=== PATIENT | male | born 1940 | race American Indian/Alaskan Native ===

== ENCOUNTER 2020-05-17 20:04 | Emergency (ER) | payer MEDICARE ==
[2020-05-17 22:04] LABS: Basophils # (Auto) 0.1 K/mm3 (0.0-0.1); Eosinophils # (Auto) 0.5 K/mm3 (0.0-0.4); Eosinophils % (Auto) 4.9 % (0.0-4.3); Hematocrit 42.1 % (35.5-45.6); Hemoglobin 14.2 gm/dl (11.8-15.2); Lymphocytes # (Auto) 2.4 K/mm3 (1.2-5.4); Lymphocytes % (Auto) 23.1 % (13.4-35.0); Mean Corpuscular HGB Conc 34 % (32-34); Mean Corpuscular Volume 90 fl (84-94); Monocytes # (Auto) 0.9 K/mm3 (0.0-0.8); Monocytes % (Auto) 8.9 % (0.0-7.3); Platelet Count 254 K/mm3 (140-440); Red Blood Count 4.68 M/mm3 (3.65-5.03); Red Cell Distribution Width 13.4 % (13.2-15.2)
[2020-05-17 22:22] LABS: Alanine Aminotransferase 19 units/L (7-56); Albumin 4.1 g/dL (3.9-5); BUN/Creatinine Ratio 24; Blood Urea Nitrogen 22 mg/dL (9-20); Calcium 8.6 mg/dL (8.4-10.2); Hemolysis Index 9
--- NOTE | 2020-05-17 22:25 | Emergency Department Report ---
ED Abdominal Pain HPI - General Chief Complaint: Urogenital-Male Stated Complaint: GROIN PAINS Time Seen by Provider: 05/17/20 20:48 Source: patient Mode of arrival: Ambulatory Limitations: No Limitations - History of Present Illness Initial Comments: 79-year-old male with a reported history of hernia for the last 2 years presents emerged department complaining of pain to the left inguinal area and a tender mass off and on associated with cough which is been progressive worsening over the last 2 days. Reports no nausea, no vomiting, no fever, chills, sweats, no testicular pain, no hematemesis, no hematochezia, no hematuria, no dysuria. States pain is worse with certain positions and palpation and does not radiate up the left side of the abdomen from time to time. MD Complaint: abdominal pain Location: LLQ Radiation: LUQ, LLQ Severity: mild, moderate Quality: aching, sharp Consistency: intermittent Improves With: nothing Associated Symptoms: denies: nausea, vomiting, diarrhea, constipation, hematochezia, hematuria, anorexia, syncope - Related Data Previous Rx's Medication Instructions Recorded Last Taken Type Acetaminophen/Codeine [Tylenol 1 tab PO Q12H PRN #5 tab 05/18/20 Unknown Rx /Codeine # 3 tab] Allergies Allergy/AdvReac Type Severity Reaction Status Date / Time No Known Allergies Allergy Unverified 05/17/20 21:05 ED Review of Systems ROS: Stated complaint: GROIN PAINS Other details as noted in HPI Comment: All other systems reviewed and negative ED Past Medical Hx - Past Medical History Previous Medical History?: No - Surgical History Past Surgical History?: Yes Additional Surgical History: R hernia surgery, "more than 10 yrs ago" - Medications Home Medications: Home Medications Medication Instructions Recorded Confirmed Last Taken Type Acetaminophen/Codeine [Tylenol 1 tab PO Q12H PRN #5 tab 05/18/20 Unknown Rx /Codeine # 3 tab] ED Physical Exam - General Limitations: No Limitations General appearance: alert, in no apparent distress - Head Head exam: Present: atraumatic, normocephalic - Eye Eye exam: Present: normal appearance - ENT ENT exam: Present: mucous membranes moist - Neck Neck exam: Present: normal inspection - Respiratory Respiratory exam: Present: normal lung sounds bilaterally. Absent: respiratory distress - Cardiovascular Cardiovascular Exam: Present: regular rate, normal rhythm. Absent: systolic murmur, diastolic murmur, rubs, gallop - GI/Abdominal GI/Abdominal exam: Present: soft, normal bowel sounds - Rectal Rectal exam: Present: deferred - Extremities Exam Extremities exam: Present: normal inspection - Back Exam Back exam: Present: normal inspection - Neurological Exam Neurological exam: Present: alert, oriented X3 - Psychiatric Psychiatric exam: Present: normal affect, normal mood - Skin Skin exam: Present: warm, dry, intact, normal color. Absent: rash ED Course Vital Signs 05/17/20 20:29 Temperature 97.9 F Pulse Rate 70 Respiratory 18 Rate Blood Pressure 137/67 O2 Sat by Pulse 93 Oximetry ED Medical Decision Making - Lab Data Result diagrams: 05/17/20 21:20 05/17/20 21:20 Lab Results 05/17/20 05/17/20 05/17/20 Range/Units 21:20 21:20 Unknown WBC 10.3 (4.5-11.0) K/mm3 RBC 4.68 (3.65-5.03) M/mm3 Hgb 14.2 (11.8-15.2) gm/dl Hct 42.1 (35.5-45.6) % MCV 90 (84-94) fl MCH 30 (28-32) pg MCHC 34 (32-34) % RDW 13.4 (13.2-15.2) % Plt Count 254 (140-440) K/mm3 Lymph % (Auto) 23.1 (13.4-35.0) % [place] % (Auto) 8.9 H (0.0-7.3) % Eos % (Auto) 4.9 H (0.0-4.3) % Baso % (Auto) 1.0 (0.0-1.8) % Lymph # (Auto) 2.4 (1.2-5.4) K/mm3 [place] # (Auto) 0.9 H (0.0-0.8) K/mm3 Eos # (Auto) 0.5 H (0.0-0.4) K/mm3 Baso # (Auto) 0.1 (0.0-0.1) K/mm3 Seg Neutrophils % 62.1 (40.0-70.0) % Seg Neutrophils # 6.4 (1.8-7.7) K/mm3 Sodium 139 (137-145) mmol/L Potassium 4.0 (3.6-5.0) mmol/L Chloride 104.4 (98-107) mmol/L Carbon Dioxide 22 (22-30) mmol/L Anion Gap 17 mmol/L BUN 22 H (9-20) mg/dL Creatinine 0.9 (0.8-1.3) mg/dL Estimated GFR > 60 ml/min BUN/Creatinine Ratio 24 % Glucose 88 (75-100) mg/dL Calcium 8.6 (8.4-10.2) mg/dL Total Bilirubin 0.30 (0.1-1.2) mg/dL AST 20 (5-40) units/L ALT 19 (7-56) units/L Alkaline Phosphatase 107 (35-129) units/L Total Protein 6.5 (6.3-8.2) g/dL Albumin 4.1 (3.9-5) g/dL Albumin/Globulin Ratio 1.7 % Urine Color Yellow (Yellow) Urine Turbidity Clear (Clear) Urine pH 5.0 (5.0-7.0) Ur Specific [place] 1.017 (1.003-1.030) Urine Protein <15 mg/dl (Negative) mg/dL Urine Glucose (UA) Neg (Negative) mg/dL Urine Ketones Neg (Negative) mg/dL Urine Blood Neg (Negative) Urine Nitrite Neg (Negative) Urine Bilirubin Neg (Negative) Urine Urobilinogen < 2.0 (<2.0) mg/dL Ur Leukocyte Esterase Neg (Negative) Urine WBC (Auto) < 1.0 (0.0-6.0) /HPF Urine RBC (Auto) < 1.0 (0.0-6.0) /HPF Urine Mucus Few /HPF - Radiology Data Radiology results: report reviewed Referring Physician:SARA LEWISPatient Name:WESTON CARLSONEPatient ID:[id number] of :[id number]:MaleAccession:[id number] Date:[id number] Status:Finalized Findings [facility] [address] [place] [address] Cat Scan Report Signed Patient: WESTON ENGLE MR#: [id number] : 1940 Acct:[id number] Age/Sex: 79 / M ADM Date: 05/17/20 Loc: ED Attending Dr: Ordering Physician: FRANCA LEGER Date of Service: 05/17/20 Procedure(s): CT abdomen pelvis w con Accession Number(s): [id number] cc: FRANCA LEGER CT OF THE ABDOMEN AND PELVIS WITH INTRAVENOUS CONTRAST INDICATION / CLINICAL INFORMATION: Lower abdominal pain. TECHNIQUE: The patient received 100 cc Omnipaque [address] scans at this location are performed using CT dose reduction for ALARA by means of automated exposure control. COMPARISON: None available. FINDINGS: ABDOMEN: There is patchy low density in the pancreatic head/uncinate process without a discrete mass. There is a focal area of ductal calcification in the pancreatic duct near the neck. An adjacent subcentimeter pancreatic cyst is present at that site. There are diffuse atherosclerotic calcifications involving the abdominal aorta and its branches. There is an infrarenal AAA measuring approximately 3.7 cm transverse. Several small low-density lesions in the liver are likely cysts. The gallbladder, bile ducts, pancreas, adrenal glands, kidneys and bowel demonstrate no significant abnormality. There is an 8 mm noncalcified subpleural nodule in the left lower lobe and there is a 3 mm noncalcified subpleural nodule in the right lower lobe. Mild bibasilar subsegmental atelectasis is present. PELVIS: The prostate gland is mildly enlarged. The distal ureters and urinary bladder are normal. The cecum is located in the upper abdomen near the midline. I do not identify the appendix. There is no evidence of diverticulitis. No abnormal mass or fluid collection is seen. I do not identify a hernia. There is a stent graft in the right common iliac artery. No acute osseous abnormality is present. IMPRESSION: 1. No acute intra-abdominal disease is identified. 2. 3.7 cm infrarenal AAA. 3. Patchy low density in the pancreatic head/uncinate process may just represent focal fatty infiltration rather than a mass. Subcentimeter cyst in the pancreatic neck with associated adjacent pancreatic ductal calcifications. Nonemergent MRI of the pancreas may be he lpful in further evaluation. 4. Incidental pulmonary nodules, the largest of which measures 8 mm in the left lower lobe. A follow-up CT of the chest is recommended in 3-6 months in both low and high risk patients. INCIDENTAL PULMONARY NODULE RECOMMENDATION RECOMMENDATION: Solid Nodule size 6-8 mm -- Multiple - Low Risk Patient: CT at 3-6 months, then consider CT at 18-24 months - High Risk Patient: CT at 3-6 months, then CT at 18-24 month Note These recommendations do not apply to lung cancer screening, patients with immunosuppression, or patients with known primary cancer. Note Newly detected indeterminate nodule in persons 35 years of age or older. Persons under the age of 35 should not receive follow-up unless there is a known primary cancer. Note A Perifissural Nodule is a fissure-attached/subpleural, homogeneous, solid nodule that had smooth margins and an oval, lentiform, or triangular shape. They represent about 20% of nodules detected in lung cancer screening, are invariably benign, and do not require follow-up. Nodules 10 mm or larger (or those with suspicious features) will continue to be managed based on the size criteria. Low Risk Patient -- minimal or absent history of smoking and of other known risk factors. High Risk Patient -- history of smoking or of other known risk factors. Nodule dimensions are average of long and short axes, rounded to the nearest millimeter. Based on 2017 Fleischner Society Guidelines found in Radiology 2017 284:228-243. https://doi.org/10.1148/radiol.4774306903 https://www.ncbi.nlm.nih.gov/pmc/articles/DAS2011921/ Signer Name: Salas Al MD Signed: 05/17/2020 11:23 PM Workstation Name: [id number] Transcribed By: RT Dictated By: Salas Al MD Electronically Authenticated By: Salas Al MD Signed Date/Time: 05/17/202322 DD/ 11 TD/TT: - Medical Decision Making This patient presents with abdominal pain of unclear etiology but may stem from a left inguinal hernia. A CT scan was performed to evaluate for potential causes of the abdominal pain, however, neither the clinical exam nor the CT has identified an emergent etiology for the abdominal pain. Specifically, given the benign exam, the laboratory studies, and unremarkable CT, I have a very low suspicion for appendicitis, ischemic bowel, bowel perforation, or any other life threatening disease. I have discussed with the patient the level of uncertainty with undifferentiated abdominal pain and clearly explained the need to follow-up as noted on the discharge instructions, or return to the Emergency Department immediately if the pain worsens, develops fever, persistent and uncontrollable vomiting, or for any new symptoms or concerns. Critical care attestation.: If time is entered above; I have spent that time in minutes in the direct care of this critically ill patient, excluding procedure time. ED Disposition Clinical Impression: Pulmonary nodule seen on imaging study, Pancreatic cyst, Aneurysm of infrarenal abdominal aorta, Abdominal pain, Inguinal hernia Disposition: TO HOME OR SELFCARE Is pt being admited?: No Does the pt Need Aspirin: No Condition: Stable Instructions: Incidental Abnormal Radiological Finding, Pulmonary Nodule Prescriptions: Acetaminophen/Codeine [Tylenol /Codeine # 3 tab] 1 tab PO Q12H PRN #5 tab PRN Reason: severe pain Referrals: PRIMARY CAREMD [Primary Care Provider] - 3-5 Days ZUNILDA PETERSON MD [Staff Physician] - 3-5 Days
[2020-05-17 22:30] LABS: Bilirubin,Urine NEG (Negative); Blood,Urine NEG (Negative); Color,Urine Yellow (Yellow); Mucus,Urine FEW /HPF; Protein,Urine <15 mg/dL mg/dL (Negative); RBC,Urine < 1.0 /HPF (0.0-6.0); Urobilinogen,Urine < 2.0 mg/dL (<2.0); WBC,Urine < 1.0 /HPF (0.0-6.0)
--- NOTE | 2020-05-17 23:28 | Cat Scan Report ---
CT OF THE ABDOMEN AND PELVIS WITH INTRAVENOUS CONTRAST INDICATION / CLINICAL INFORMATION: Lower abdominal pain. TECHNIQUE: The patient received 100 cc Omnipaque [address] scans at this location are performed using CT dose reduction for ALARA by means of automated exposure control. COMPARISON: None available. FINDINGS: ABDOMEN: There is patchy low density in the pancreatic head/uncinate process without a discrete mass. There is a focal area of ductal calcification in the pancreatic duct near the neck. An adjacent subc entimeter pancreatic cyst is present at that site. There are diffuse atherosclerotic calcifications involving the abdominal aorta and its branches. Ther e is an infrarenal AAA measuring approximately 3.7 cm transverse. Several small low-density lesions i n the liver are likely cysts. The gallbladder, bile ducts, pancreas, adrenal glands, kidneys and robbin l demonstrate no significant abnormality. There is an 8 mm noncalcified subpleural nodule in the left lower lobe and there is a 3 mm noncalcifi ed subpleural nodule in the right lower lobe. Mild bibasilar subsegmental atelectasis is present. PELVIS: The prostate gland is mildly enlarged. The distal ureters and urinary bladder are normal. The cecum is located in the upper abdomen near the midline. I do not identify the appendix. There is no evidence of diverticulitis. No abnormal mass or fluid collection is seen. I do not identify a hernia. There is a stent graft in the right common iliac artery. No acute osseous abnormality is present. IMPRESSION: 1. No acute intra-abdominal disease is identified. 2. 3.7 cm infrarenal AAA. 3. Patchy low density in the pancreatic head/uncinate process may just represent focal fatty infiltra tion rather than a mass. Subcentimeter cyst in the pancreatic neck with associated adjacent pancreati c ductal calcifications. Nonemergent MRI of the pancreas may be helpful in further evaluation. 4. Incidental pulmonary nodules, the largest of which measures 8 mm in the left lower lobe. A follow- up CT of the chest is recommended in 3-6 months in both low and high risk patients. INCIDENTAL PULMONARY NODULE RECOMMENDATION RECOMMENDATION: Solid Nodule size 6-8 mm -- Multiple - Low Risk Patient: CT at 3-6 months, then consider CT at 18-24 months - High Risk Patient: CT at 3-6 months, then CT at 18-24 month Note These recommendations do not apply to lung cancer screening, patients with immunosuppression, o r patients with known primary cancer. Note Newly detected indeterminate nodule in persons 35 years of age or older. Persons under the age of 35 should not receive follow-up unless there is a known primary cancer. Note A Perifissural Nodule is a fissure-attached/subpleural, homogeneous, solid nodule that had smoo th margins and an oval, lentiform, or triangular shape. They represent about 20% of nodules detected in lung cancer screening, are invariably benign, and do not require follow-up. Nodules 10 mm or large r (or those with suspicious features) will continue to be managed based on the size criteria. Low Risk Patient -- minimal or absent history of smoking and of other known risk factors. High Risk Patient -- history of smoking or of other known risk factors. Nodule dimensions are average of long and short axes, rounded to the nearest millimeter. Based on 2017 Fleischner Society Guidelines found in Radiology 2017 284:228-243. https://doi.org/10.1148/radiol.7081047601 https://www.ncbi.nlm.nih.gov/pmc/articles/ERY0762658/ Signer Name: Salas Al MD Signed: 05/17/2020 11:23 PM Workstation Name: [id number]
[2020-05-18 00:46] VITALS: BP 156/57
== END 2020-05-18 00:55 | disposition home or self-care (01) ==
LOC: ED 20:04
DX: K40.90 Unilateral inguinal hernia, without obstruction or gangrene, not specified as recurrent (principal); I71.4 Abdominal aortic aneurysm, without rupture; K86.2 Cyst of pancreas; R91.1 Solitary pulmonary nodule; R10.32 Left lower quadrant pain; Z98.890 Other specified postprocedural states; Z79.899 Other long term (current) drug therapy
CPT/HCPCS: 36415; 74177; 80053; 81001; 85025; 99284; Q9967

== ENCOUNTER 2020-06-01 10:48 | Emergency (ER) | payer MEDICARE ==
[2020-06-01 11:17] VITALS: BP 131/51
--- NOTE | 2020-06-01 12:00 | Emergency Department Report ---
Blank Doc - Documentation Documentation: 79-year-old male that presents with left leg pain. Denies any injuries. Has not been taking Plavix for several weeks. 1- This initial assessment/diagnostic orders/clinical plan/ treatment(s) is/are subject to change based on pt's health status, clinical progression and re-as sessment by fellow clinical providers in the ED. Further treatment and workup at subsequent clinical provers discretion. Patient/guardians urged not to elope from ED as their condition may be serious if not clinically assessed and managed. 2-labs 3-Doppler ultrasound
[2020-06-01 12:51] LABS: Basophils # (Auto) 0.1 K/mm3 (0.0-0.1); Basophils % (Auto) 1.6 % (0.0-1.8); Eosinophils # (Auto) 0.4 K/mm3 (0.0-0.4); Eosinophils % (Auto) 7.4 % (0.0-4.3); Hematocrit 39.1 % (35.5-45.6); Hemoglobin 13.1 gm/dl (11.8-15.2); Lymphocytes # (Auto) 1.4 K/mm3 (1.2-5.4); Lymphocytes % (Auto) 23.8 % (13.4-35.0); Mean Corpuscular HGB Conc 34 % (32-34); Mean Corpuscular Volume 89 fl (84-94); Monocytes # (Auto) 0.6 K/mm3 (0.0-0.8); Monocytes % (Auto) 9.9 % (0.0-7.3); Platelet Count 260 K/mm3 (140-440); Red Blood Count 4.39 M/mm3 (3.65-5.03); Red Cell Distribution Width 13.6 % (13.2-15.2)
[2020-06-01 13:02] LABS: INR 1.1 (0.87-1.13)
[2020-06-01 13:03] LABS: Partial Thromboplastin Time 32.5 Sec. (24.2-36.6)
--- NOTE | 2020-06-01 13:07 | Vascular Lab Report ---
DUPLEX DOPPLER LOWER EXTREMITY VEINS, LEFT INDICATION / CLINICAL INFORMATION: left leg pain. TECHNIQUE: Duplex doppler imaging was performed through the veins of the left lower extremity using venous compr ession and other maneuvers. COMPARISON: None available. FINDINGS: LEFT COMMON FEMORAL VEIN: Negative. LEFT FEMORAL VEIN: Negative. LEFT POPLITEAL VEIN: Negative. LEFT CALF VEINS: Negative. ADDITIONAL FINDINGS: None. IMPRESSION: 1. No sonographic evidence for DVT in the left lower extremity. Signer Name: Salas Braga MD Signed: 06/01/2020 1:03 PM Workstation Name: [id number]
[2020-06-01 13:14] LABS: Alanine Aminotransferase 22 units/L (7-56); BUN/Creatinine Ratio 19; Blood Urea Nitrogen 19 mg/dL (9-20); Calcium 9.1 mg/dL (8.4-10.2); Hemolysis Index 0
--- NOTE | 2020-06-01 15:08 | Emergency Department Report ---
- General Chief Complaint: Extremity Problem,Nontraumatic Stated Complaint: LEFT LEG PAIN Time Seen by Provider: 06/01/20 11:58 Source: patient, family Mode of arrival: Wheelchair Limitations: Physical Limitation - History of Present Illness Initial Comments: Chief complaint: "The only reason that I am here is that the doctor across the street would not take Medicare." HPI: This is a 79-year-old male with history of coronary artery disease and left inguinal hernia who presents with hernia. He also has swelling and redness in his legs. Left hernia is not giving him any discomfort. However it is just annoying. He wants a surgical opinion. Patient also has increasing redness and skin breakdown especially in his left lower leg. Swelling in the legs have been persistent for quite some time. Unclear onset. He denies fever. He denies chest pain. He currently does not have a primary physician nor kapok machine operator. -: Gradual, week(s) (Several readings) Location: other (Lower legs swelling redness) Extremity Location: Left: Lower Leg, Right: Lower Leg Place: home Context: other (Persistent leg swelling) - Related Data Previous Rx's Medication Instructions Recorded Last Taken Type Acetaminophen/Codeine [Tylenol 1 tab PO Q12H PRN #5 tab 05/18/20 Unknown Rx /Codeine # 3 tab] cephALEXin [Keflex] 500 mg PO TID 7 Days #21 cap 06/01/20 Unknown Rx Allergies Allergy/AdvReac Type Severity Reaction Status Date / Time No Known Allergies Allergy Unverified 05/17/20 21:05 ED Review of Systems ROS: Stated complaint: LEFT LEG PAIN Other details as noted in HPI Comment: All other systems reviewed and negative Constitutional: denies: fever, malaise Respiratory: denies: cough, shortness of breath Cardiovascular: denies: chest pain Skin: rash, lesions ED Past Medical Hx - Past Medical History Previous Medical History?: Yes Additional medical history: Coronary artery disease - Surgical History Past Surgical History?: Yes Hx Coronary Stent: Yes Additional Surgical History: R hernia surgery, "more than 10 yrs ago" - Social History Smoking Status: Unknown if ever smoked - Medications Home Medications: Home Medications Medication Instructions Recorded Confirmed Last Taken Type Acetaminophen/Codeine [Tylenol 1 tab PO Q12H PRN #5 tab 05/18/20 Unknown Rx /Codeine # 3 tab] cephALEXin [Keflex] 500 mg PO TID 7 Days #21 cap 06/01/20 Unknown Rx ED Physical Exam - General Limitations: Physical Limitation General appearance: alert, in no apparent distress, other (Walks with a walker, pleasant no acute distress) - Head Head exam: Present: atraumatic, normocephalic - Eye Eye exam: Present: normal appearance - ENT ENT exam: Present: mucous membranes moist - Neck Neck exam: Present: normal inspection, full ROM - Respiratory Respiratory exam: Present: normal lung sounds bilaterally. Absent: respiratory distress, wheezes, rales, rhonchi - Cardiovascular Cardiovascular Exam: Present: regular rate, normal rhythm, normal heart sounds. Absent: systolic murmur, diastolic murmur, rubs, gallop - GI/Abdominal GI/Abdominal exam: Present: soft, normal bowel sounds. Absent: distended, tenderness, guarding, rebound - Rectal Rectal exam: Present: deferred - exam: Present: scrotal swelling, other (Soft mobile inguinal hernia) - Extremities Exam Extremities exam: Present: pedal edema, other (Pitting edema 2+ lower extr emities with erythema, skin breakdown, 6 cm x 6 cm red patch left vertebral region) - Back Exam Back exam: Present: normal inspection - Neurological Exam Neurological exam: Present: alert, oriented X3 - Psychiatric Psychiatric exam: Present: normal affect, normal mood - Skin Skin exam: Present: warm, rash, erythema ED Course Vital Signs 06/01/20 11:16 Temperature 97.7 F Pulse Rate 81 Respiratory 20 Rate Blood Pressure 131/51 [Right] O2 Sat by Pulse 93 Oximetry ED Medical Decision Making - Lab Data Result diagrams: 06/01/20 12:26 06/01/20 12:26 Laboratory Results - last 24 hr 06/01/20 06/01/20 06/01/20 12:26 12:26 12:26 WBC 5.9 RBC 4.39 Hgb 13.1 Hct 39.1 MCV 89 MCH 30 MCHC 34 RDW 13.6 Plt Count 260 Lymph % (Auto) 23.8 [place] % (Auto) 9.9 H Eos % (Auto) 7.4 H Baso % (Auto) 1.6 Lymph # (Auto) 1.4 [place] # (Auto) 0.6 Eos # (Auto) 0.4 Baso # (Auto) 0.1 Seg Neutrophils % 57.3 Seg Neutrophils # 3.4 PT 14.0 INR 1.10 APTT 32.5 Sodium 138 Potassium 4.1 Chloride 105.8 Carbon Dioxide 25 Anion Gap 11 BUN 19 Creatinine 1.0 Estimated GFR > 60 BUN/Creatinine Ratio 19 Glucose 97 Calcium 9.1 Total Bilirubin 0.30 AST 21 ALT 22 Alkaline Phosphatase 112 Total Protein 7.4 Albumin 4.0 Albumin/Globulin Ratio 1.2 - Radiology Data Radiology results: report reviewed DUPLEX DOPPLER LOWER EXTREMITY VEINS, LEFT INDICATION / CLINICAL INFORMATION: left leg pain. TECHNIQUE: Duplex doppler imaging was performed through the veins of the left lower extremity using venous compression and other maneuvers. COMPARISON: None available. FINDINGS: LEFT COMMON FEMORAL VEIN: Negative. LEFT FEMORAL VEIN: Negative. LEFT POPLITEAL VEIN: Negative. LEFT CALF VEINS: Negative. ADDITIONAL FINDINGS: None. IMPRESSION: 1. No sonographic evidence for DVT in the left lower extremity. - Medical Decision Making Patient admits that he needs a primary physician. He does not have a primary physician nor does he have a kapok machine operator. He has had difficulty obtaining follow-up in surgeon's office for inguinal hernia. He has multiple nonemergent concerns. 1. Stasis dermatitis: Prescribed cephalexin, with mild lower extremity swelling considerations venous insufficiency versus versus heart failure kidney function normal 2. Inguinal hernia no evidence of incarceration obstruction 3. Blood type request: Patient desires to know his blood type. I gave extensive verbal education as to the reason why this is not an emergent lab. Patient given referral to outpatient medicine physician, surgeon, kapok machine operator. I have reviewed labs CBC chemistry PT PTT within normal limits Critical care attestation.: If time is entered above; I have spent that time in minutes in the direct care of this critically ill patient, excluding procedure time. ED Disposition Clinical Impression: Inguinal hernia, History of coronary artery disease, Stasis dermatitis Disposition: DC-01 TO HOME OR SELFCARE Is pt being admited?: No Does the pt Need Aspirin: No Condition: Stable Instructions: Inguinal Hernia, Adult, [id number], Stasis Dermatitis Prescriptions: cephALEXin [Keflex] 500 mg PO TID 7 Days #21 cap Referrals: SILVIO MELENDEZ MD [Staff Physician] - 3-5 Days JAYDON GIL MD [Staff Physician] - 3-5 Days LYN CALLAWAY MD [Staff Physician] - 3-5 Days
== END 2020-06-01 15:23 | disposition home or self-care (01) ==
LOC: ED 10:48
DX: K40.90 Unilateral inguinal hernia, without obstruction or gangrene, not specified as recurrent (principal); I87.2 Venous insufficiency (chronic) (peripheral); I25.10 Atherosclerotic heart disease of native coronary artery without angina pectoris; Z98.890 Other specified postprocedural states; Z79.899 Other long term (current) drug therapy
CPT/HCPCS: 36415; 80053; 85025; 85610; 85730